=== PATIENT | female | born 1945 | race Caucasian/White ===

== ENCOUNTER → 2020-02-08 09:19 | Outpatient (REF) | payer MEDICARE, SELFPAY ==
--- NOTE | 2020-02-08 09:30 | CA_ITS ---
Transthoracic Echocardiogram Patient (Last, First, Middle): Nadia Chrisetnsen, Gender: Female Date of : 1945 Age: 74 Procedure Date: 02/08/2020 Procedure Type: Transthoracic Echocardiogram Location: OP Height: 157.48 cm Weight: 85.28 kg BSA: 1.86 m2 Heart Rate: bpm BP: 118 / 52 mmHg Rand Sewer: ADRIENNE Referring MD: Scotty Jorge MD Symptoms: Paroxysmal atrial fibrillation, CHF Study Quality: Fair ECG Rhythm: Sinus Conclusions: - The left ventricular systolic function is normal. The visually estimated ejection fraction is between 60-65%. - No obvious valvular pathology seen on this study. Findings Left Ventricle Normal left ventricular cavity size. There is normal left ventricular wall thickness. The left ventricular systolic function is normal. The visually estimated ejection fraction is between 60-65%. There is no evidence of regional wall motion abnormalities. E/E prime ratio is <8, consistent with normal filling pressures. Evidence suggests grade I (mild) diastolic dysfunction. Right Ventricle Normal right ventricular cavity size and systolic function. Atria The left atrium is normal in size. The right atrium is normal in size. Aortic Valve There is a normal trileaflet aortic valve. There is no aortic valve stenosis. Trace to mild aortic regurgitation. Mitral Valve The mitral valve appears normal. There is trace mitral valve regurgitation. There is no mitral valve stenosis. Pulmonic Valve The pulmonic valve was not well visualized. Tricuspid Valve Normal tricuspid valve structure. There is trace tricuspid valve regurgitation. The right ventricular systolic pressure is normal. Great Vessels The aortic annulus, sinuses of valsalva, and asc aorta are normal in size. Venous The inferior vena cava is normal in size and collapses greater than 50% with inspiration. Pericardium/Pleural There is no evidence of pericardial effusion. Prior Study Comparison No significant change compared to prior study dated: 03/11/2019. Recommendations, Care & Conclusions No obvious valvular pathology seen on this study. Measurements 2D Linear Measurements IVSd: 0.79 0.6-0.9/0.6-1.0 cm LVIDd: 4.83 3.9-5.3/4.2-5.9 cm LVIDd Index: 2.60 2.4-3.2/2.2-3.1 cm/m2 LVIDs: 3.58 2.0-3.6 cm LVPWd: 0.93 0.7-1.1 cm Ao Root: 2.90 2.1-3.5 cm LA Diam: 3.60 2.7-3.8/3.0-4.0 cm LAIDs Index: 1.94 1.5-2.3 cm/m2 LV Mass: 174.00 67-162/88-224 g LV Mass Index: 93.55 43-95/49-115 g/m2 LVOT Diam: 2.00 3.0+(-)1.3 cm 2D Systolic Function EF 2C: 60.90 >55% Mitral Valve MV Pk E: 0.50 MV PK A: 0.61 MV Decel Time: 243.00 E/A: 0.80 E'Lateral: 8.51 E'Medial: 4.25 E/E' Med: 11.60 E/E' Lat: 5.80 PHT: 71.00 MVA PHT: 3.10 Decel [place]: 2.04 Aortic Valve AoV Pk Nico: 1.10 AoV Pk Grad: 5.00 AI Pk Nico: 2.84 AI [place]: 1.04 LVOT LVOT Pk Nico: 1.06 LVOT Mn Nico: 0.66 LVOT VTI: 0.24 LVOT Pk Grad: 4.00 LVOT Mn Grad: 2.00 LVOT Diam: 2.00 LVOT Area: 3.14 Diastolic Function MV Pk E: 0.50 MV Pk A: 0.61 E/A: 0.80 E'Medial: 4.25 E/E' Med: 11.60 E' Laterial: 8.51 E/E' Lat: 5.80 Tricuspid Valve TR Pk Nico: 2.10 TR Pk Grad: 18.00 RA Press: 3.00 Great Vessels Aorta Ao Root-2D: 2.90 2.0-3.7 cm Ao Asc: 3.40 2.1-3.4 cm Updated in Other Vendor System with Status of Final Nicolas Martinez MD electronically signed on 02/11/2020 9:07:52 AM with status of Final
== END ==
LOC: HO.CARD 09:19
PROVIDERS: PCP Family Medicine; Visit Provider Internal Medicine Cardiovascular Disease
DX: I48.0 Paroxysmal atrial fibrillation (principal); I50.30 Unspecified diastolic (congestive) heart failure
CPT/HCPCS: 93306

== ENCOUNTER 2020-07-16 14:08 | Outpatient (REF) | payer MEDICARE, SELFPAY ==
[2020-07-16 15:20] LABS: Hematocrit 42.1 % (37-47); Mean Corpuscular HGB Conc 33.3 g/dl (31.0-35.0); Mean Corpuscular Volume 93.3 fL (80-98); Mean Platelet Volume 10.2 fL (9.4-12.3); Platelet Count 317 X10*3/uL (160-400); Red Blood Count 4.51 X10*6/uL (4.20-5.50); Red Cell Distribution Width 15.4 % (11.0-16.0); White Blood Count 8.8 X10*3/uL (4.8-10.8)
[2020-07-16 15:48] LABS: Anion Gap 12 (12-20); Blood Urea Nitrogen 17 mg/dL (9-16); Calcium 9.1 mg/dL (8.4-10.2); Carbon Dioxide 26 mmol/L (22-29); Chloride 105 mmol/L (96-108); Estimated Glomerular Filt Rate > 60; Glucose Random 86 mg/dL (60-115); Sodium 138 mmol/L (135-145)
== END 2020-07-16 14:09 | disposition home or self-care (01) ==
LOC: HO.LAB 14:08
PROVIDERS: PCP Family Medicine; Visit Provider Internal Medicine Cardiovascular Disease
DX: I48.0 Paroxysmal atrial fibrillation (principal); I13.0 Hypertensive heart and chronic kidney disease with heart failure and stage 1 through stage 4 chronic kidney disease, or unspecified chronic kidney disease; I50.30 Unspecified diastolic (congestive) heart failure; N18.9 Chronic kidney disease, unspecified; I73.9 Peripheral vascular disease, unspecified; I44.0 Atrioventricular block, first degree; J45.909 Unspecified asthma, uncomplicated; Z86.16 Personal history of COVID-19
CPT/HCPCS: 36415; 80048; 85027; 93005; 99212

== ENCOUNTER 2020-11-13 12:29 | Outpatient (REF) | payer MEDICARE, SELFPAY ==
--- NOTE | ~2020-11-13 | MM_ITS ---
EXAMINATION: MM SCREENING DIGITAL BREAST TOMOSYNTHESIS, RIGHT CLINICAL INFORMATION: History left mastectomy 2010. Due for yearly. COMPARISON: Mammography: 11/09/2019, 10/22/2018, 10/21/2017, 12/22/2016 TECHNIQUE: Digital breast tomosynthesis is performed in both the craniocaudal and mediolateral oblique views along with computer-aided detection (CAD). Synthesized 2D images are generated from the tomosynthesis. FINDINGS: The breasts are heterogeneously dense, which may obscure small masses (ACR BI-RADS breast composition Category c). Parenchymal pattern is similar to prior studies. There is no developing density or interval mass or architectural abnormality. Again, there are scattered round, rim, and vascular calcifications. The axilla and skin contours are unremarkable. No significant changes. MM/MM tomosynthesis screening RT IMPRESSION: No mammographic evidence of malignancy. ASSESSMENT: BI-RADS 2: Benign RECOMMENDATION: Routine annual mammography screening. This patient's information was entered into a reminder system with a target due date for their next mammogram.
== END 2020-11-13 12:30 | disposition home or self-care (01) ==
LOC: HO.MAMMO 12:29
PROVIDERS: Visit Provider Family Medicine
DX: Z12.31 Encounter for screening mammogram for malignant neoplasm of breast (principal)
CPT/HCPCS: 77063; 77067

== ENCOUNTER → 2020-12-31 08:26 | Outpatient (REF) | payer MEDICARE, SELFPAY ==
--- NOTE | ~2020-12-31 | XR_ITS ---
EXAMINATION: XR ANKLE, RIGHT CLINICAL INFORMATION: Pain. COMPARISON: Prior radiographs, most recently 12/10/2016. TECHNIQUE: AP, lateral, and mortise views of the right ankle. FINDINGS: Bony alignment and mineralization are normal. The ankle mortise is intact. No fracture, dislocation or right ankle joint effusion is seen. Boehler's angle is normal. There is a tiny posterior calcaneal spur. There is degenerative change of the dorsal midfoot. The soft tissue planes are unremarkable, without foreign body. XR/XR ankle RT min 3V IMPRESSION: 1. No fracture, dislocation or right ankle joint effusion is seen. 2. There is a tiny posterior calcaneal spur. EXAMINATION: XR ANKLE, LEFT CLINICAL INFORMATION: Pain. COMPARISON: None TECHNIQUE: AP, lateral, and mortise views of the left ankle. FINDINGS: Bony alignment and mineralization are normal. The ankle mortise is intact. No acute fracture, dislocation or right pleural effusion is seen. A chronic compression fracture is redemonstrated of the navicular. There are degenerative changes of the midfoot. Boehler's angle is normal. There is a very small posterior calcaneal spur. The soft tissue planes are unremarkable, without foreign body. IMPRESSION: 1. No fracture, dislocation or left ankle joint effusion is seen. 2. A chronic compression fracture is recent demonstrating of the left navicular bone. 3. There is a very small posterior calcaneal spur.
--- NOTE | ~2020-12-31 | XR_ITS ---
EXAMINATION: XR ANKLE, RIGHT CLINICAL INFORMATION: Pain. COMPARISON: Prior radiographs, most recently 12/10/2016. TECHNIQUE: AP, lateral, and mortise views of the right ankle. FINDINGS: Bony alignment and mineralization are normal. The ankle mortise is intact. No fracture, dislocation or right ankle joint effusion is seen. Boehler's angle is normal. There is a tiny posterior calcaneal spur. There is degenerative change of the dorsal midfoot. The soft tissue planes are unremarkable, without foreign body. XR/XR ankle LT min 3V IMPRESSION: 1. No fracture, dislocation or right ankle joint effusion is seen. 2. There is a tiny posterior calcaneal spur. EXAMINATION: XR ANKLE, LEFT CLINICAL INFORMATION: Pain. COMPARISON: None TECHNIQUE: AP, lateral, and mortise views of the left ankle. FINDINGS: Bony alignment and mineralization are normal. The ankle mortise is intact. No acute fracture, dislocation or right pleural effusion is seen. A chronic compression fracture is redemonstrated of the navicular. There are degenerative changes of the midfoot. Boehler's angle is normal. There is a very small posterior calcaneal spur. The soft tissue planes are unremarkable, without foreign body. IMPRESSION: 1. No fracture, dislocation or left ankle joint effusion is seen. 2. A chronic compression fracture is recent demonstrating of the left navicular bone. 3. There is a very small posterior calcaneal spur.
--- NOTE | ~2020-12-31 | XR_ITS ---
EXAMINATION: XR KNEE, RIGHT XR KNEE, LEFT CLINICAL INFORMATION: Pain COMPARISON: X-ray 11/07/2015. TECHNIQUE: Bilateral knees each 4 views. FINDINGS: Left Knee: Marginal osteophytes in the medial compartment. Medial and lateral compartment joint space is maintained. There is marginal osteophyte, lateral patellar tilt and narrowing of the lateral aspect of the patellofemoral joint on the skyline view. No visible acute fracture or dislocation. Small suprapatellar joint fluid. Right Knee: Marginal osteophytes in the three compartments. Mild lateral patellar subluxation and prominent joint space loss in the lateral articulation of the patellofemoral joint. Chronic-appearing ossification along the lateral aspect of the patella. No visible acute fracture or dislocation. Trace suprapatellar joint fluid. XR/XR knee LT 4V IMPRESSION: Left Knee: Osteoarthritis, more prominent in the patellofemoral compartment, interval worsening as compared to previous. No acute osseous abnormality. Right Knee: Osteoarthritis present, more prominent in the patellofemoral compartment. Interval progression from previous. No acute osseous abnormality.
--- NOTE | ~2020-12-31 | XR_ITS ---
EXAMINATION: XR KNEE, RIGHT XR KNEE, LEFT CLINICAL INFORMATION: Pain COMPARISON: X-ray 11/07/2015. TECHNIQUE: Bilateral knees each 4 views. FINDINGS: Left Knee: Marginal osteophytes in the medial compartment. Medial and lateral compartment joint space is maintained. There is marginal osteophyte, lateral patellar tilt and narrowing of the lateral aspect of the patellofemoral joint on the skyline view. No visible acute fracture or dislocation. Small suprapatellar joint fluid. Right Knee: Marginal osteophytes in the three compartments. Mild lateral patellar subluxation and prominent joint space loss in the lateral articulation of the patellofemoral joint. Chronic-appearing ossification along the lateral aspect of the patella. No visible acute fracture or dislocation. Trace suprapatellar joint fluid. XR/XR knee RT 4V IMPRESSION: Left Knee: Osteoarthritis, more prominent in the patellofemoral compartment, interval worsening as compared to previous. No acute osseous abnormality. Right Knee: Osteoarthritis present, more prominent in the patellofemoral compartment. Interval progression from previous. No acute osseous abnormality.
--- NOTE | 2020-12-31 08:30 | CA_ITS ---
Transthoracic Echocardiogram Patient (Last, First, Middle): Nadia Christensen, Gender: Female Date of : 1945 Age: 75 Procedure Date: 12/31/2020 Procedure Type: Transthoracic Echocardiogram Location: OP Height: 152.4 cm Weight: 83.01 kg BSA: 1.80 m2 Heart Rate: bpm BP: 114 / 60 mmHg Buffer Operator: Jean MD: Scotty Jorge MD Maintenance Manager: Scotty Jorge MD Symptoms: I50.30 - Unspecified diastolic (congestive) heart failure Study Quality: Fair ECG Rhythm: Sinus Conclusions: - 1. Normal LV systolic function with grade 1 diastolic dysfunction next 2. Mild aortic regurgitation 3. Normal RV systolic pressure 4. No pericardial effusion Findings Left Ventricle Normal left ventricular size, thickness, and systolic function. The visually estimated ejection fraction is between 55-60%. Spectral Doppler is indicative of an impaired relaxation filling pattern. E/E prime ratio is <8, consistent with normal filling pressures. Evidence suggests grade I (mild) diastolic dysfunction. Right Ventricle Normal right ventricular cavity size and systolic function. Atria The left atrium is normal in size. There is no evidence of interatrial shunt. The right atrium is normal in size. Aortic Valve The aortic valve was not well visualized. There is mild calcification of the aortic valve. There is no aortic valve stenosis. There is mild aortic valve regurgitation. Mitral Valve There is mild anterior and posterior mitral leaflet thickening. There is trace mitral valve regurgitation. There is no mitral valve stenosis. Pulmonic Valve The pulmonic valve was not well visualized. Tricuspid Valve Likely normal tricuspid valve structure and function. There is trace tricuspid valve regurgitation. The right ventricular systolic pressure is normal. The right ventricular systolic pressure is 24 mmHg. Normal right atrial pressure. There is no evidence of pulmonary hypertension. Great Vessels All visible segments of the aorta are normal in size. The pulmonary artery was not well visualized. Venous The inferior vena cava is normal in size and collapses greater than 50% with inspiration. Pericardium/Pleural There is no evidence of pericardial effusion. Prior Study Comparison No significant change compared to prior study dated: 02/08/2020. Measurements 2D Linear Measurements RVIDd: 3.43 RVIDd Index: 1.91 IVSd: 1.16 0.6-0.9/0.6-1.0 cm LVIDd: 5.57 3.9-5.3/4.2-5.9 cm LVIDd Index: 3.09 2.4-3.2/2.2-3.1 cm/m2 LVIDs: 3.47 2.0-3.6 cm LVPWd: 1.00 0.7-1.1 cm Ao Root: 3.30 2.1-3.5 cm LA Diam: 4.00 2.7-3.8/3.0-4.0 cm LAIDs Index: 2.22 1.5-2.3 cm/m2 LV Mass: 300.64 67-162/88-224 g LV Mass Index: 167.02 43-95/49-115 g/m2 LVOT Diam: 2.20 3.0+(-)1.3 cm 2D Systolic Function EF 4C: 49.40 >55% EF 2C: 49.60 >55% Mitral Valve MV Pk E: 0.49 MV PK A: 0.57 MV Decel Time: 249.00 E/A: 0.90 E'Lateral: 8.59 E'Medial: 4.57 E/E' Med: 10.80 E/E' Lat: 5.70 Aortic Valve AoV Pk Nico: 1.31 AoV Mn Nico: 0.92 AoV VTI: 0.29 AoV Pk Grad: 7.00 Aov Mn Grad: 4.00 YAAKOV Cont.VTI: 3.36 AI Pk Nico: 3.11 AI [place]: 1.18 LVOT LVOT Pk Nico: 1.12 LVOT Mn Nico: 0.86 LVOT VTI: 0.25 LVOT Pk Grad: 5.00 LVOT Mn Grad: 3.00 LVOT Diam: 2.20 LVOT Area: 3.80 Diastolic Function MV Pk E: 0.49 MV Pk A: 0.57 E/A: 0.90 E'Medial: 4.57 E/E' Med: 10.80 E' Laterial: 8.59 E/E' Lat: 5.70 Right Ventricle TAPSE (mm): 24.00 TVS' Nico: 9.80 Tricuspid Valve TR Pk [place]: 2.29 TR Pk Grad: 21.00 RA Press: 3.00 RVSP: 24.00 Great Vessels Aorta Ao Root-2D: 3.30 2.0-3.7 cm Ao Asc: 3.50 2.1-3.4 cm Ao Arch: 2.90 Updated in Other Vendor System with Status of Final Scotty Jorge MD electronically signed on 12/31/2020 12:26:14 PM with status of Final
== END ==
LOC: HO.CARD 08:26
PROVIDERS: Absent Provider Family Medicine; PCP Family Medicine; Visit Provider Internal Medicine Cardiovascular Disease
DX: I50.30 Unspecified diastolic (congestive) heart failure (principal); M25.561 Pain in right knee; M25.562 Pain in left knee; M25.571 Pain in right ankle and joints of right foot; M25.572 Pain in left ankle and joints of left foot
CPT/HCPCS: 73564; 73610; 93306

== ENCOUNTER → 2021-01-04 08:04 | Outpatient (BNVA) | payer MEDICARE, SELFPAY | PROVIDERS: PCP Family Medicine; Visit Provider Physician Assistant | DX: M17.10 Unilateral primary osteoarthritis, unspecified knee (principal) | CPT/HCPCS: 99202 ==

== ENCOUNTER → 2021-01-08 12:57 | Outpatient (BNVA) | payer MEDICARE, SELFPAY | PROVIDERS: PCP Family Medicine; Referring Provider Family Medicine; Visit Provider Internal Medicine Cardiovascular Disease | DX: I48.0 Paroxysmal atrial fibrillation (principal); I50.30 Unspecified diastolic (congestive) heart failure | CPT/HCPCS: 93005; 99212 ==

== ENCOUNTER → 2021-01-15 11:14 | Outpatient (BNVA) | payer MEDICARE, SELFPAY | PROVIDERS: PCP Family Medicine; Visit Provider Nurse Practitioner Family | DX: M15.9 Polyosteoarthritis, unspecified (principal); M79.671 Pain in right foot; M79.672 Pain in left foot | CPT/HCPCS: 99212 ==

== ENCOUNTER 2021-07-17 09:41 | Outpatient (REF) | payer MEDICARE, SELFPAY ==
[2021-07-17 11:44] LABS: Hematocrit 41.1 % (37.0-47.0); Hemoglobin 13.6 g/dl (12.0-16.0); Mean Corpuscular HGB Conc 33.1 g/dl (31.0-35.0); Mean Corpuscular Hemoglobin 31.2 pg (27.0-33.0); Mean Corpuscular Volume 94.3 fL (80.0-98.0); Mean Platelet Volume 10.6 fL (9.4-12.3); Platelet Count 306 X10*3/uL (160-400); Red Blood Count 4.36 X10*6/uL (4.20-5.50); Red Cell Distribution Width 14.6 % (11.0-16.0)
[2021-07-17 12:31] LABS: Anion Gap 12 (12-20); Blood Urea Nitrogen 17 mg/dL (9-16); Calcium 9.8 mg/dL (8.4-10.2); Carbon Dioxide 27 mmol/L (22-29); Chloride 104 mmol/L (96-108); Estimated Glomerular Filt Rate > 60; Glucose Random 73 mg/dL (60-115); Potassium 4.7 mmol/L (3.3-5.1); Sodium 138 mmol/L (135-145)
== END 2021-07-17 09:42 | disposition home or self-care (01) ==
LOC: HO.LAB 09:41
PROVIDERS: PCP Family Medicine; Referring Provider Family Medicine; Visit Provider Internal Medicine Cardiovascular Disease
DX: I48.0 Paroxysmal atrial fibrillation (principal); I50.30 Unspecified diastolic (congestive) heart failure
CPT/HCPCS: 36415; 80048; 85027; 93005; 99212

== ENCOUNTER → 2021-09-17 10:26 | Outpatient (BNVA) | payer OTHER, SELFPAY | PROVIDERS: PCP Family Medicine; Visit Provider Nurse Practitioner Family | DX: M79.671 Pain in right foot (principal); M79.672 Pain in left foot; M25.561 Pain in right knee; M25.562 Pain in left knee; M54.50 Low back pain, unspecified | CPT/HCPCS: 99212 ==

== ENCOUNTER 2021-09-18 10:45 | Outpatient (REF) | payer OTHER, SELFPAY ==
--- NOTE | ~2021-09-18 | MM_ITS ---
EXAMINATION: BONE DENSITOMETRY CLINICAL INDICATION: Osteopenia. COMPARISON: Previous BD dated 08/18/2017 and baseline BD dated 01/11/2007. TECHNIQUE: Using a [employer] DXA System (software version: 13.1) manufactured by [employer], dual-energy x-ray absorptiometry was performed of the lumbar spine and left hip. The images are of good technical quality. Summary results are attached. FINDINGS: AP SPINE L1-L3 (excluding L4): The data of L1-L4 has been changed to exclude the L4 vertebral body, because degenerative changes at this level may cause overestimation of lumbar spine density. Current: BMD 1.019 g/cm2, Z-score 2.0, T-score -1.3, osteopenia, 8.6% increase from previous, 0.4% increase from baseline (<5% change is not significant). Prior: BMD 0.938 g/cm2. Baseline: BMD 1.015 g/cm2. LEFT FEMUR, NECK: Current: BMD 0.842 g/cm2, Z-score 0.3, T-score -1.4, osteopenia. Prior: BMD 0.901 g/cm2. Baseline: BMD 0.915 g/cm2. LEFT FEMUR, TOTAL: Current: BMD 0.932 g/cm2, Z-score 0.9, T-score -0.6, normal, 5.6% decrease from previous, 10.7% decrease from baseline (<5% change is not significant). Prior: BMD 0.987 g/cm2. Baseline: BMD 1.044 g/cm2. IDENTIFIED RISK FACTORS: Early menopause, hysterectomy, secondary osteoporosis. HISTORY OF FRACTURE: None listed. MEDICATIONS: None listed. MM/XR DEXA axial skeleton IMPRESSION: 1. DIAGNOSIS: Osteopenia based on the lowest T-score value of -1.4 in the femoral neck applying World Health Organization criteria. 2. 10-YEAR FRACTURE RISK PREDICTION, FRAX: Major osteoporotic fracture (clinical spine, forearm, hip or shoulder) 7.1%. Hip fracture 1.5%. 3. Treatment Recommendations: NOF guidelines recommend consideration for treatment in postmenopausal women and men age 50 and older presenting with the following: -A hip or vertebral (clinical or morphometric) fracture. -T-score less than or equal to -2.5 at the femoral neck or spine after appropriate evaluation to exclude secondary causes. -Low bone mass at the hip or spine and a 10-year fracture probability by FRAX of greater than or equal to 3% for hip fracture or greater than or equal to 20% for major osteoporotic fracture based on the [place] adapted WHO algorithm. 4. Other Recommendations: All treatment decisions require clinical judgment and consideration of individual patient factors, including patient preferences, comorbidities, previous drug use, risk factors not captured in the FRAX model (e.g. frailty, falls, vitamin D deficiency, increased bone turnover, interval significant decline in bone density) and possible under or overestimation of fracture risk by FRAX. Additional medical evaluation for secondary cause of low bone mineral density may be appropriate. FUTURE SCAN RECOMMENDATION: People with diagnosed cases of osteoporosis or at high risk for fracture should have regular bone mineral density tests. For patients eligible for Medicare, routine testing is allowed once every 2 years. The testing frequency can be increased to one year for patients who have rapidly progressing disease, those who are receiving or discontinuing medical therapy to restore bone mass, or have additional risk factors.
== END 2021-09-18 10:46 | disposition home or self-care (01) ==
LOC: HO.MAMMO 10:45
PROVIDERS: PCP Family Medicine; Visit Provider Internal Medicine Medical Oncology
DX: Z13.820 Encounter for screening for osteoporosis (principal); D05.12 Intraductal carcinoma in situ of left breast; Z78.0 Asymptomatic menopausal state; M85.80 Other specified disorders of bone density and structure, unspecified site
CPT/HCPCS: 77080

== ENCOUNTER 2021-11-18 10:15 | Outpatient (REF) | payer OTHER, SELFPAY ==
--- NOTE | ~2021-11-18 | MM_ITS ---
EXAMINATION: MM SCREENING DIGITAL BREAST TOMOSYNTHESIS, RIGHT CLINICAL INFORMATION: Left mastectomy, 2010. Due for yearly. COMPARISON: Mammography: 11/13/2020, 11/09/2019, 10/22/2018 TECHNIQUE: Digital breast tomosynthesis is performed in both the craniocaudal and mediolateral oblique views along with computer-aided detection (CAD). Synthesized 2D images are generated from the tomosynthesis. Additional right CC view is provided. FINDINGS: The breasts are heterogeneously dense, which may obscure small masses (ACR BI-RADS breast composition Category c). There are no significant masses, abnormal calcifications, or other abnormalities. Parenchymal pattern is similar to prior exams. There are scattered vascular and round calcifications. The axilla and skin contours are unremarkable. No significant changes from prior studies. MM/MM tomosynthesis screening RT IMPRESSION: No mammographic evidence of malignancy. ASSESSMENT: BI-RADS 2: Benign RECOMMENDATION: Routine annual mammography screening. This patient's information was entered into a reminder system with a target due date for their next mammogram.
== END 2021-11-18 10:16 | disposition home or self-care (01) ==
LOC: HO.MAMMO 10:15
PROVIDERS: Visit Provider Internal Medicine Medical Oncology
DX: Z12.31 Encounter for screening mammogram for malignant neoplasm of breast (principal); Z90.12 Acquired absence of left breast and nipple
CPT/HCPCS: 77063; 77067

== ENCOUNTER → 2022-01-10 14:48 | Outpatient (BNVA) | payer OTHER, SELFPAY | PROVIDERS: PCP Family Medicine; Referring Provider Family Medicine; Visit Provider Nurse Practitioner | DX: Z01.818 Encounter for other preprocedural examination (principal); K59.04 Chronic idiopathic constipation; I48.0 Paroxysmal atrial fibrillation; J44.9 Chronic obstructive pulmonary disease, unspecified | CPT/HCPCS: 99202; 99212 ==

== ENCOUNTER → 2022-01-21 10:08 | Outpatient (BNVA) | payer OTHER, SELFPAY | PROVIDERS: PCP Family Medicine; Referring Provider Family Medicine; Visit Provider Internal Medicine Cardiovascular Disease | DX: I48.0 Paroxysmal atrial fibrillation (principal); I50.30 Unspecified diastolic (congestive) heart failure | CPT/HCPCS: 93005; 99212 ==

== ENCOUNTER 2022-01-31 08:39 | Outpatient (REF) | payer OTHER, SELFPAY ==
[2022-01-31 08:51] LABS: MANUAL DIFF FLAG NO
[2022-01-31 09:51] LABS: Basophils Absolute Auto 0.1 X10*3/uL (0.0-0.2); Eosinophils Absolute Auto 0.2 X10*3/uL (0.0-0.4); Hemoglobin 13.7 g/dl (12.0-16.0); Imm Gran Abs Auto 0.03 X10*3/uL (0.00-0.03); Imm Gran Pct Auto 0.4 % (0.0-0.4); Lymphocytes Absolute Auto 2.5 X10*3/uL (1.2-4.9); Lymphocytes Percent Auto 31.1 % (20-40); Mean Corpuscular HGB Conc 32.6 g/dl (31.0-35.0); Mean Corpuscular Hemoglobin 30.9 pg (27.0-33.0); Mean Corpuscular Volume 94.6 fL (80.0-98.0); Mean Platelet Volume 10.5 fL (9.4-12.3); Monocytes Absolute Auto 0.9 X10*3/uL (0.1-1.2); Monocytes Percent Auto 10.7 % (2-11); Neutrophils Absolute Auto 4.4 x10*3/uL (2.0-8.3); Neutrophils Percent Auto 53.8 % (45-73); Platelet Count 298 X10*3/uL (160-400); Red Blood Count 4.44 X10*6/uL (4.20-5.50); Red Cell Distribution Width 14.5 % (11.0-16.0); White Blood Count 8.1 X10*3/uL (4.8-10.8)
[2022-01-31 10:49] LABS: Alanine Aminotransferase 14 U/L (0-31); Albumin Level 4.1 g/dL (3.5-5.0); Alkaline Phosphatase 123 U/L (39-117); Anion Gap 14 (12-20); Aspartate Amino Transferase 14 U/L (5-31); Bilirubin Total < 0.2 mg/dL (0.0-1.0); Blood Urea Nitrogen 13 mg/dL (9-16); Calcium 9.5 mg/dL (8.4-10.2); Carbon Dioxide 26 mmol/L (22-29); Chloride 105 mmol/L (96-108); Estimated Glomerular Filt Rate > 60; Glucose Random 77 mg/dL (60-115); Potassium 4.9 mmol/L (3.3-5.1); Sodium 140 mmol/L (135-145); Total Protein 7.1 g/dL (6.5-8.0)
[2022-01-31 10:56] LABS: Vitamin D 25-OH Total 22.8 ng/mL (>30)
== END 2022-01-31 08:40 | disposition home or self-care (01) ==
LOC: HO.LAB 08:39
PROVIDERS: Internal Medicine Medical Oncology; PCP Family Medicine; Visit Provider Internal Medicine Cardiovascular Disease
DX: D05.12 Intraductal carcinoma in situ of left breast (principal)
CPT/HCPCS: 36415; 80053; 82306; 85025

== ENCOUNTER → 2022-02-05 09:05 | Outpatient (BNVA) | payer OTHER, SELFPAY | PROVIDERS: PCP Family Medicine; Visit Provider Nurse Practitioner | DX: K59.04 Chronic idiopathic constipation (principal); N81.4 Uterovaginal prolapse, unspecified | CPT/HCPCS: 99212 ==

== ENCOUNTER 2022-02-07 15:50 | Outpatient (REF) | payer OTHER, SELFPAY ==
[2022-02-07 16:36] LABS: COVID-19 Test Negative (Negative); IDNOW Serial# 16C4AD1C
== END 2022-02-07 15:51 | disposition home or self-care (01) ==
LOC: HO.LAB 15:50
PROVIDERS: Visit Provider Internal Medicine
DX: Z20.822 Contact with and (suspected) exposure to COVID-19 (principal)
CPT/HCPCS: 87635; C9803

== ENCOUNTER 2022-06-02 08:23 | Day surgery (SDC) | payer OTHER, SELFPAY ==
--- NOTE | 2022-05-30 11:58 | P.CONAN_ITS ---
Documented by User: Sarahi Reece NP 06/30/22 10:30 HPI - Anesthesia Eval Consult details Narrative: 77yo F for Colonoscopy Eliquis for PAF PMFSH Active Problems Active Problems: All Active Problems (Updated 05/26/22 @ 15:51 by Rizwana Gee, OBI) Ductal carcinoma in situ (DCIS) of left breast (Acute) Patellofemoral arthritis (Acute) Osteoarthritis of multiple joints (Acute) Pain in both feet (Acute) Depression with anxiety (Acute) COPD (chronic obstructive pulmonary disease) (Acute) Osteoporosis (Acute) Tubular adenoma of colon (Acute) Nummular eczema (Acute) Vitiligo (Acute) Cystocele with prolapse (Acute) Urinary, incontinence, stress female (Acute) Lumbar degenerative disc disease (Acute) Lumbar radiculopathy (Acute) Chronic idiopathic constipation (Acute) Pre-op examination (Acute) (HFpEF) heart failure with preserved ejection fraction (Acute) Paroxysmal atrial fibrillation (Acute) Past Medical History Medical History (Updated 06/27/22 @ 14:01 by SUSAN Witt) (HFpEF) heart failure with preserved ejection fraction Anxiety Atrial fibrillation Bronchial asthma CKD (chronic kidney disease) H. pylori infection Hypertension Insomnia Irritable bowel syndrome with both constipation and diarrhea On anticoagulant therapy On beta pascale at home Osteoarthritis Paroxysmal atrial fibrillation Peripheral vascular disease Vertigo Family History Family History Sister Breast cancer in female Family/Other Cancer of breast Surgical History Surgical History H/O cardiac catheterization H/O cataract removal with insertion of prosthetic lens H/O colonoscopy H/O left mastectomy H/O vaginal hysterectomy History of bladder suspension procedure History of cataract surgery S/P cholecystectomy Social History Social History (Updated 02/21/22 @ 09:15 by Alana Starkey CMA) Household Members: Spouse and Children Housing: Apartment Are you a primary plant care worker to a significant other at home: No Do you presently have visiting nurse or other home services: Yes Alcohol intake: never Patient Tobacco Use Status: Never used Tobacco service: No Current occupational status: retired and disabled Current occupation: rt hand Meds Allergies Allergy/AdvReac Type Severity Reaction Status Date / Time bumetanide [BUMETANIDE] Allergy Severe ANAPHYLAXIS Verified 06/27/22 13:23 acetaminophen Allergy Unknown UNKNOWN Verified 06/27/22 13:23 [From Tylenol-Codeine #3] codeine [CODEINE] Allergy Unknown HIVES Verified 06/27/22 13:23 dronedarone [From MULTAQ] Allergy Unknown NAUSEA & Verified 06/27/22 13:23 VOMITING furosemide Allergy Unknown hives Verified 06/27/22 13:23 cyclobenzaprine AdvReac Mild TACHYCARDIA Verified 06/27/22 13:23 [From Flexeril] diphenhydramine AdvReac Mild TACHYCARDIA Verified 06/27/22 13:23 [From Benadryl] Home Medications Medication Instructions Recorded Confirmed Last Taken Type albuterol sulfate 90 mcg/actuation 2 puff inhalation Q4-6H PRN 02/07/20 05/26/22 05/28/22 History aerosol inhaler Shortness Of Breath Or Wheezing cholecalciferol (vitamin D3) 50 50 mcg PO DAILY 02/07/20 06/02/22 05/28/22 History mcg (2,000 unit) tablet (Vitamin D3) cyanocobalamin (vitamin B-12) 1,000 mcg IM QMONTH 02/07/20 05/26/22 05/13/22 History 1,000 mcg/mL injection solution montelukast 10 mg tablet 10 mg PO BEDTIME 02/07/20 05/26/22 05/28/22 History fluticasone propionate 220 0 mcg inhalation BID 01/10/22 06/02/22 05/28/22 History mcg/actuation HFA aerosol inhaler (Flovent HFA) omeprazole 40 mg capsule,delayed 1 cap DAILY 02/21/22 05/26/22 05/28/22 History release flecainide 100 mg tablet 100 mg PO Q12H 06/27/22 Unknown History melatonin 1 mg tablet mg PO PRN 06/27/22 Unknown History Exam Exam Date and Time: May 30, 2022 1158 Pertinent Lab Results Pertinent Lab Results: Laboratory Tests 02/21/22 02/21/22 09:35 09:35 WBC 8.6 Hgb 13.4 Hct 39.8 Plt Count 308 Sodium 140 Potassium 4.8 Chloride 105 Carbon Dioxide 28 BUN 20 H D Creatinine 0.72 Narrative Narrative: EKG 01/2022 ?normal sinus rhythm with incomplete left bundle-branch block, unchanged from before with normal QT interval ECHO Conclusions: - 1. Normal LV systolic function with grade 1 diastolic? dysfunction next 2. Mild aortic regurgitation? 3. Normal RV systolic pressure ? 4. No pericardial effusion ? ? Assessment and Plan Assessment Anesthesia Assessment: Chart Reviewed Documented by User: Tatyana Liz MD 07/01/22 07:25 [facility] Past Medical History Medical History (Updated 06/27/22 @ 14:01 by SUSAN Witt) (HFpEF) heart failure with preserved ejection fraction Anxiety Atrial fibrillation Bronchial asthma CKD (chronic kidney disease) H. pylori infection Hypertension Insomnia Irritable bowel syndrome with both constipation and diarrhea On anticoagulant therapy On beta pascale at home Osteoarthritis Paroxysmal atrial fibrillation Peripheral vascular disease Vertigo Family History Family History Sister Breast cancer in female Family/Other Cancer of breast Family history of problems with anesthesia: No Surgical History Surgical History H/O cardiac catheterization H/O cataract removal with insertion of prosthetic lens H/O colonoscopy H/O left mastectomy H/O vaginal hysterectomy History of bladder suspension procedure History of cataract surgery S/P cholecystectomy History of Problems with Anesthesia: No Social History Social History (Updated 02/21/22 @ 09:15 by Alana Starkey CMA) Household Members: Spouse and Children Housing: Apartment Are you a primary plant care worker to a significant other at home: No Do you presently have visiting nurse or other home services: Yes Alcohol intake: never Patient Tobacco Use Status: Never used Tobacco service: No Current occupational status: retired and disabled Current occupation: rt hand Meds Allergies Allergy/AdvReac Type Severity Reaction Status Date / Time bumetanide [BUMETANIDE] Allergy Severe ANAPHYLAXIS Verified 06/27/22 13:23 acetaminophen Allergy Unknown UNKNOWN Verified 06/27/22 13:23 [From Tylenol-Codeine #3] codeine [CODEINE] Allergy Unknown HIVES Verified 06/27/22 13:23 dronedarone [From MULTAQ] Allergy Unknown NAUSEA & Verified 06/27/22 13:23 VOMITING furosemide Allergy Unknown hives Verified 06/27/22 13:23 cyclobenzaprine AdvReac Mild TACHYCARDIA Verified 06/27/22 13:23 [From Flexeril] diphenhydramine AdvReac Mild TACHYCARDIA Verified 06/27/22 13:23 [From Benadryl] Home Medications Medication Instructions Recorded Confirmed Last Taken Type albuterol sulfate 90 mcg/actuation 2 puff inhalation Q4-6H PRN 02/07/20 05/26/22 05/28/22 History aerosol inhaler Shortness Of Breath Or Wheezing cholecalciferol (vitamin D3) 50 50 mcg PO DAILY 02/07/20 06/02/22 05/28/22 History mcg (2,000 unit) tablet (Vitamin D3) cyanocobalamin (vitamin B-12) 1,000 mcg IM QMONTH 02/07/20 05/26/22 05/13/22 History 1,000 mcg/mL injection solution montelukast 10 mg tablet 10 mg PO BEDTIME 02/07/20 05/26/22 05/28/22 History fluticasone propionate 220 0 mcg inhalation BID 01/10/22 06/02/22 05/28/22 History mcg/actuation HFA aerosol inhaler (Flovent HFA) omeprazole 40 mg capsule,delayed 1 cap DAILY 02/21/22 05/26/22 05/28/22 History release flecainide 100 mg tablet 100 mg PO Q12H 06/27/22 Unknown History melatonin 1 mg tablet mg PO PRN 06/27/22 Unknown History Exam Airway Heart: rrr Lungs: cta Assessment and Plan Assessment Anesthesia Assessment: Anesthesia Plan Discussed Final Anesthetic Review Family History of Problems with Anesthesia: No History of Problems with Anesthesia: No NPO: Yes ASA Class: III Final Preanesthetic Review: No Changes in Pt Med Stat, Meds/Allgs Chart Reviewed, Consent Obtained/Reviewed and Anes Risks/Benef Reviewed Patient Risk: Low Procedure Risk: Low Anesthetic Plan Anesthetic Plan: GA Disposition: Standard PACU
[2022-06-02 06:43] VITALS: BMI 33.6
[2022-06-02 08:53] VITALS: BP 144/61; PULSE 56; RESP 18; TEMP 36.6; O2SAT 97
[2022-06-02] MEDS: Lactated Ringers 1,000 ML 50 ML IVCONT (09:21)
--- NOTE | 2022-06-02 09:45 | MHC.SHP ---
Pre-Procedural Eval Section A Date of Service: 06/02/22 The patient is an INPATIENT: No The History & Physical has been completed within 30 days and I have reviewed it.: No Section B Chief Complaint: screening, Chronic idiopathic constipation Details of Present Illness: Colon cancer screening, chronic constipation, rectal pain Relevant Family History (Specify if Yes): No Relevant Social History: None Present Medications: see Short Stay Collaborative assessment Medical History: Significant History (Partially evaluated due to suboptimal prep with undigested vegetable matter which could not be suctioned) History of Previous Operations: Relevant previous surgery/procedure and date(s) (H/O cardiac catheterization H/O cataract removal with insertion of prosthetic lens H/O colonoscopy H/O left mastectomy H/O vaginal hysterectomy History of bladder suspension procedure History of cataract surgery S/P cholecystectomy) Allergies: Allergies Allergy/AdvReac Type Severity Reaction Status Date / Time bumetanide [BUMETANIDE] Allergy Severe ANAPHYLAXIS Verified 05/26/22 15:40 acetaminophen Allergy Unknown UNKNOWN Verified 05/26/22 15:40 [From Tylenol-Codeine #3] codeine [CODEINE] Allergy Unknown HIVES Verified 05/26/22 15:40 dronedarone [From MULTAQ] Allergy Unknown NAUSEA & Verified 05/26/22 15:40 VOMITING furosemide Allergy Unknown hives Verified 05/26/22 15:40 cyclobenzaprine AdvReac Mild TACHYCARDIA Verified 05/26/22 15:40 [From Flexeril] diphenhydramine AdvReac Mild TACHYCARDIA Verified 05/26/22 15:40 [From Benadryl] Review of Systems Sugical H&P ROS: Negative: Constitution, Cardiovascular, Respiratory and Gastrointestinal Exam Surgical H&P Exam: Normal: Heart, Normal: Lungs, Normal: Extremities and Normal: Abdomen Plan Diagnosis/Plan: Unchanged I have reviewed the history and physical and performed a pertinent physical examination on my patient. No changes have occurred unless specified. Time Spent With Patient Time: Total time managing care of this patient today ____ minutes.
--- NOTE | 2022-06-02 11:22 | PM.OP ---
Brief Operative Note Date of Service: 06/02/22 Pre-op diagnosis: Colon cancer screening, chronic constipation Post-op diagnosis: other (Colon polyps, diverticulosis, hemorrhoids) Procedure: COLONOSCOPY TO CECUM WITH BIOPSIES AND SNARE POLYPECTOMY Surgeon: Abril Waters MD Anesthesia: MAC Was an Manager Operations [employer] used for this Procedure?: Yes Manager Operations [employer] Procurement: Zeina Ventura Estimated blood loss (mL): 0 Pathology: other (A. transverse colon polyps (2) B. sigmoid colon polyps (2)) Condition: stable Disposition: PACU
--- NOTE | 2022-06-02 11:23 | W.PM.OPN ---
Operative Note Operative Note Date of Service: 06/02/22 Narrative: Pre-op diagnosis: Colon cancer screening, chronic constipation Post-op diagnosis:?other (Colon polyps, diverticulosis, hemorrhoids) Surgeon: Abril Wtaers MD Anesthesia:?MAC COLONOSCOPY TILL CECUM WITH BIOPSIES AND SNARE POLYPECTOMY Consent: Indications for the procedure and potential complications of bleeding, perforation, reaction to medications and missed diagnosis were discussed with the patient and informed consent was obtained. Instrument: Olympus PCF H 190 L variable stiffness pediatric colonoscope Monitoring: Vital signs and clinical assessment, intermittent blood pressure monitoring, continuous EKG monitoring, Pulse oximetry and Carbon Dioxide monitoring were done throughout the procedure. Colon withdrawl time was 23 minutes. Procedure: The patient was placed in the left lateral decubitis position and pre-procedure medications were administered. After a digital rectal examination of the ano-rectum, the video colonoscope was inserted into the rectum and advanced through the colon to the cecum. The colonoscope was slowly withdrawn in a retrograde panoramic fashion and the colon mucosa was carefully examined including a retroflexed view of the rectum. Findings and interventions are described below. Procedure Difficulty: Without difficulty Findings: Terminal Ileum: Not evaluated Cecum: Normal Ascending Colon: Normal Transverse Colon: A 7-8 mm sessile polyp - removed with a cold snare. A 4-5 mm sessile polyp - removed with a cold biopsy Descending Colon: Moderate diverticulosis Sigmoid Colon: A 2-3 mm sessile polyp removed with a cold biopsy. A 12-15 mm sessile polyp removed with a hot snare. Moderate diverticulosis Rectum: Normal Ano-rectum: Moderate internal hemorrhoids Colon preparation: Excellent Impression and Post Procedure Diagnosis: Colonoscopy Findings: Four small to medium sized polyps removed Moderate diverticulosis seen in the left colon Moderate hemorrhoids on retroflexed exam. Plan: Await pathology results Patient has an appointment on 06/17/22 in the [facility] with Rebekah Mari NP. Repeat Colonoscopy interval based on path results - in 3 years if polyps are adenomatous and 10 years if polyps are hyperplastic. Above findings were reviewed with the patient and colon polyps and diverticulosis handouts were given in the discharge area
[2022-06-02 12:08] VITALS: BP 156/54; PULSE 57; RESP 16; TEMP 36.4; O2SAT 100
[2022-06-02 12:23] VITALS: BP 161/65; PULSE 51; RESP 16; TEMP 36.3; O2SAT 97
[2022-06-02 12:38] VITALS: BP 168/68; PULSE 53; RESP 16; O2SAT 98
== END 2022-06-02 13:38 | disposition home or self-care (01) ==
PROVIDERS: PCP Family Medicine; Visit Provider Internal Medicine Gastroenterology
PROC: 0DJD8ZZ Inspection of Lower Intestinal Tract, Via Natural or Artificial Opening Endoscopic (ICD-10-PCS; CPT 45378; principal; 2022-06-02 10:20)
DX: Z12.11 Encounter for screening for malignant neoplasm of colon (principal); K57.30 Diverticulosis of large intestine without perforation or abscess without bleeding; K63.5 Polyp of colon
CPT/HCPCS: 45380; 45385; 88305

== ENCOUNTER → 2022-06-27 13:15 | Outpatient (BNVA) | payer OTHER, SELFPAY | PROVIDERS: PCP Family Medicine; Visit Provider Nurse Practitioner | DX: D12.3 Benign neoplasm of transverse colon (principal); D12.5 Benign neoplasm of sigmoid colon; K57.30 Diverticulosis of large intestine without perforation or abscess without bleeding; K64.8 Other hemorrhoids; K59.04 Chronic idiopathic constipation; L30.0 Nummular dermatitis; Z98.890 Other specified postprocedural states | CPT/HCPCS: 99212 ==

== ENCOUNTER → 2022-07-28 09:00 | Outpatient (BNVA) | payer OTHER, SELFPAY | PROVIDERS: PCP Family Medicine; Referring Provider Family Medicine; Visit Provider Internal Medicine Cardiovascular Disease | DX: I50.30 Unspecified diastolic (congestive) heart failure (principal); I48.0 Paroxysmal atrial fibrillation | CPT/HCPCS: 93005; 99212 ==

== ENCOUNTER 2022-11-21 10:51 | Outpatient (REF) | payer OTHER, SELFPAY ==
--- NOTE | ~2022-11-21 | MM_ITS ---
EXAMINATION: MM SCREENING DIGITAL BREAST TOMOSYNTHESIS, RIGHT CLINICAL INFORMATION: Screening. Asymptomatic. Patient is status post left mastectomy. COMPARISON: Mammography: This study is compared with prior exams dating back to TECHNIQUE: Digital breast tomosynthesis is performed in both the craniocaudal and mediolateral oblique views along with computer-aided detection (CAD). Synthesized 2D images are generated from the tomosynthesis. FINDINGS: The breasts are heterogeneously dense, which may obscure small masses (ACR BI-RADS breast composition Category c). There are no significant masses, abnormal calcifications, or other abnormalities. There are scattered benign calcifications. MM/MM tomosynthesis screening RT IMPRESSION: No mammographic evidence of malignancy. ASSESSMENT: BI-RADS BI-RADS 2 - Benign Findings RECOMMENDATION: Routine annual mammography screening. 1 year F/U This examination should not preclude the clinical evaluation of a suspicious palpable abnormality. This patient's information was entered into a reminder system with a target due date for their next mammogram.
== END 2022-11-21 10:52 | disposition home or self-care (01) ==
LOC: HO.MAMMO 10:51
PROVIDERS: PCP Family Medicine; Visit Provider Family Medicine
DX: Z12.31 Encounter for screening mammogram for malignant neoplasm of breast (principal)
CPT/HCPCS: 77063; 77067

== ENCOUNTER → 2022-11-21 11:00 | Outpatient (BNV) | payer OTHER, SELFPAY | PROVIDERS: PCP Family Medicine; Visit Provider Radiology Diagnostic Radiology | DX: Z12.31 Encounter for screening mammogram for malignant neoplasm of breast (principal) | CPT/HCPCS: 77063; 77067 ==

== ENCOUNTER 2022-11-28 09:11 | Outpatient (REF) | payer OTHER, SELFPAY ==
[2022-11-28 11:16] LABS: MANUAL DIFF FLAG NO
[2022-11-28 11:31] LABS: Basophils Absolute Auto 0.1 X10*3/uL (0.0-0.2); Basophils Percent Auto 0.7 % (0-2); Eosinophils Absolute Auto 0.2 X10*3/uL (0.0-0.4); Eosinophils Percent Auto 1.7 % (0-4); Hematocrit 41.8 % (37.0-47.0); Hemoglobin 13.7 g/dl (12.0-16.0); Imm Gran Abs Auto 0.05 X10*3/uL (0.00-0.03); Imm Gran Pct Auto 0.5 % (0.0-0.4); Lymphocytes Absolute Auto 2.9 X10*3/uL (1.2-4.9); Lymphocytes Percent Auto 28.1 % (20-40); Mean Corpuscular HGB Conc 32.8 g/dl (31.0-35.0); Mean Corpuscular Hemoglobin 30.8 pg (27.0-33.0); Mean Corpuscular Volume 93.9 fL (80.0-98.0); Mean Platelet Volume 10.4 fL (9.4-12.3); Monocytes Percent Auto 9.9 % (2-11); Neutrophils Absolute Auto 6.1 x10*3/uL (2.0-8.3); Neutrophils Percent Auto 59.1 % (45-73); Platelet Count 279 X10*3/uL (160-400); Red Blood Count 4.45 X10*6/uL (4.20-5.50); Red Cell Distribution Width 14.6 % (11.0-16.0); White Blood Count 10.3 X10*3/uL (4.8-10.8)
[2022-11-28 11:35] LABS: Estimated Average Glucose 126 mg/dL; Hemoglobin A1C 149.8284 umol/L
[2022-11-28 11:56] LABS: Cholesterol 179 mg/dL; HDL Cholesterol 62 mg/dL; LDL Cholesterol Calculated 103 mg/dl; Triglycerides 74 mg/dL
[2022-11-28 11:57] LABS: Alanine Aminotransferase 11 U/L (0-31); Albumin Level 3.8 g/dL (3.5-5.0); Alkaline Phosphatase 111 U/L (39-117); Anion Gap 14 (12-20); Aspartate Amino Transferase 15 U/L (5-31); Bilirubin Total 0.3 mg/dL (0.0-1.0); Blood Urea Nitrogen 18 mg/dL (9-16); C Reactive Protein 0.36 mg/dL (< or = 0.50); Calcium 9.3 mg/dL (8.4-10.2); Carbon Dioxide 23 mmol/L (22-29); Chloride 105 mmol/L (96-108); Estimated Glomerular Filt Rate > 60; Glucose Random 81 mg/dL (60-115); Iron 85 mcg/dL (30-160); Percent Iron Saturation 29 % (15-50); Potassium 4.2 mmol/L (3.3-5.1); Sodium 138 mmol/L (135-145); Total Iron Binding Capacity 295 mcg/dL (228-428); Total Protein 7.2 g/dL (6.5-8.0); Unsaturated Iron Binding 210 ug/dL
[2022-11-28 12:12] LABS: Erythrocyte Sedimentation Rate 13 MM/HR (0-20)
[2022-11-28 12:16] LABS: Ferritin 17 ng/mL (10-250); TSH reflex Free T4 1.53 uIU/mL (0.32-4.0)
[2022-11-28 12:49] LABS: Folate 15.6 ng/mL (> or = 4.0); Vitamin B12 > 2000 pg/mL (200-900)
[2022-11-28 14:12] LABS: Reflex LDLD? No
== END 2022-11-28 09:12 | disposition home or self-care (01) ==
LOC: HO.HHCL 09:11
PROVIDERS: Visit Provider Family Medicine
DX: L30.9 Dermatitis, unspecified (principal); R73.01 Impaired fasting glucose; I11.0 Hypertensive heart disease with heart failure; I50.32 Chronic diastolic (congestive) heart failure; D51.0 Vitamin B12 deficiency anemia due to intrinsic factor deficiency; I48.0 Paroxysmal atrial fibrillation
CPT/HCPCS: 36415; 80053; 80061; 82607; 82728; 82746; 83036; 83540; 84443; 85025; 85652; 86140

== ENCOUNTER 2022-12-04 14:43 | Emergency (ER) | payer OTHER, SELFPAY ==
--- NOTE | 2022-12-04 14:48 | ED.GENADULT ---
HPI - General Adult General Chief complaint: General Medical Stated complaint: pain in legs Time Seen by Provider: 12/04/22 15:48 Source: patient, RN notes reviewed and old records reviewed Mode of arrival: ambulatory History of Present Illness HPI narrative: 77-year-old female with a past medical history of CHF, AFib on Eliquis, asthma, CKD, HTN, PVD, osteoarthritis, presenting to the ED complaining of pruritic discolored rash to bilateral lower extremities and left arm x5 months. States rash is persistent/not going away. Has tried multiple topical remedies as well as followed up with dermatology and obtained biopsy last month (which patient does not know result) without relief. States she was recommended to go to unemployment specialist however has been unable to secure appointment. Denies new exposures, travel, insect bite, fever/chills, SOB Onset (ago): month(s) Related Data Home Medications Medication Instructions Recorded Confirmed albuterol sulfate 90 mcg/actuation 2 puff inhalation Q4-6H PRN 02/07/20 07/28/22 aerosol inhaler Shortness Of Breath Or Wheezing cholecalciferol (vitamin D3) 50 50 mcg PO DAILY 02/07/20 07/28/22 mcg (2,000 unit) tablet (Vitamin D3) cyanocobalamin (vitamin B-12) 1,000 mcg IM QMONTH 02/07/20 07/28/22 1,000 mcg/mL injection solution montelukast 10 mg tablet 10 mg PO BEDTIME 02/07/20 07/28/22 fluticasone propionate 220 0 mcg inhalation BID 01/10/22 07/28/22 mcg/actuation HFA aerosol inhaler (Flovent HFA) omeprazole 40 mg capsule,delayed 1 cap DAILY 02/21/22 07/28/22 release flecainide 100 mg tablet 100 mg PO Q12H 06/27/22 07/28/22 melatonin 1 mg tablet mg PO PRN 06/27/22 07/28/22 Previous Rx's Medication Instructions Recorded plecanatide 3 mg tablet (Trulance) 3 mg PO DAILY #30 tabs 02/05/22 metoprolol succinate 25 mg 25 mg PO DAILY #90 tabs 06/13/22 tablet,extended release 24 hr clotrimazole-betamethasone 1 1 appl topical BID #45 grams 06/27/22 %-0.05 % topical cream apixaban 5 mg tablet (Eliquis) 5 mg PO BID #180 tabs 07/14/22 clotrimazole 1 % topical cream 1 appl topical BID 4 weeks #45 12/04/22 (Antifungal (clotrimazole)) grams hydrocortisone 1 % topical cream 1 appl topical BID PRN rash #28.4 12/04/22 (Anti-Itch (hydrocortisone)) grams Allergies Allergy/AdvReac Type Severity Reaction Status Date / Time bumetanide [BUMETANIDE] Allergy Severe ANAPHYLAXIS Verified 12/04/22 14:49 acetaminophen Allergy Unknown UNKNOWN Verified 12/04/22 14:49 [From Tylenol-Codeine #3] codeine [CODEINE] Allergy Unknown HIVES Verified 12/04/22 14:49 dronedarone [From MULTAQ] Allergy Unknown NAUSEA & Verified 12/04/22 14:49 VOMITING furosemide Allergy Unknown hives Verified 12/04/22 14:49 cyclobenzaprine AdvReac Mild TACHYCARDIA Verified 12/04/22 14:49 [From Flexeril] diphenhydramine AdvReac Mild TACHYCARDIA Verified 12/04/22 14:49 [From Benadryl] Review of Systems Review of Systems: Constitutional: No Fever, No Chills ENT/Mouth: No Ear Pain, No Nasal Congestion, No sore throat, No Rhinorrhea, No Swallowing Difficulty Cardiovascular: No Chest Pain, No SOB Respiratory: No Cough, No Sputum Gastrointestinal: No Nausea, No Vomiting, No Abdominal pain Musculoskeletal: No joint pain, No Myalgias, No Joint Swelling Skin: + Skin Lesions, No rash Neuro: No Weakness, No Numbness, No Paresthesias Yes all other systems are reviewed and are negative Constitutional: Constitutional: Reports as per [facility] Past Medical History Attestation statement: The following information was validated with the patient. Source: old records reviewed Medical History (HFpEF) heart failure with preserved ejection fraction Anxiety Atrial fibrillation Bronchial asthma CKD (chronic kidney disease) H. pylori infection Hypertension Insomnia Irritable bowel syndrome with both constipation and diarrhea On anticoagulant therapy On beta pascale at home Osteoarthritis Paroxysmal atrial fibrillation Peripheral vascular disease Vertigo Surgical History H/O cardiac catheterization H/O cataract removal with insertion of prosthetic lens H/O colonoscopy H/O left mastectomy H/O vaginal hysterectomy History of bladder suspension procedure History of cataract surgery S/P cholecystectomy Family History Family History Sister Breast cancer in female Family/Other Cancer of breast Social History Social History Household Members: Spouse and Children Housing: Apartment Are you a primary care consultant to a significant other at home: No Do you presently have visiting nurse or other home services: Yes Alcohol intake: never Patient Tobacco Use Status: Never used Tobacco Advance Directives: No Advance Directives Information Provided: No service: No Current occupational status: retired and disabled Current occupation: rt hand Physical Exam ED Vital Signs: Vital Signs - 24 hr 12/04/22 14:50 Temperature 98 F Pulse Rate 68 Respiratory Rate 19 Blood Pressure 136/73 Pulse Oximetry 97 Oxygen Delivery Method Room Air BMI result Body Mass Index 33.9 Const General: cooperative, healthy appearing and no acute distress Orientation/consciousness: patient oriented x3 Limitations: no limitations HENMT Head: Yes normal to inspection and Yes atraumatic Ears: hearing grossly normal bilaterally General nose exam: Normal external nose present Face and sinus: Yes normal facial exam Eyes General: appearance normal, both eyes and all related structures EOM: EOMs intact bilaterally Neck Neck: Yes normal visual inspection and Yes no meningeal signs Resp Effort & Inspection: normal respiratory effort and no respiratory distress Cardio Rate: regular rate Skin Other: + erythematous patchy rash noted to bilateral lower extremities with central scaling/dry skin. No warmth. No fluctuance/induration or pustules/vesicles. Not circumferential. No palm/sole or mucous membrane involvement. No sloughing Wounds: no wounds Neuro General: patient oriented x3, tone normal and no meningeal signs Gait exam (Neuro): Normal gait present Extrem General: Yes normal to inspection Course Course Course Narrative: This is a rapid medical exam: Additional HPI, ROS, PE not included below will be deferred to primary provider. Patient is a 77-year-old female with history of nummular eczema and nummular dermatitis, osteoarthritis, osteoporosis, COPD, lumbar radiculopathy, heart failure with preserved EF, and paroxysmal afib presenting to the emergency department with complaint of erythema and pain/itching to bilateral lower legs for several months. She was seen by the clinical psychologist licensed who prescribed a cream but patient states that the cream makes the areas more erythematous and bravo. Patient states that she developed a sting to the back of her leg 4 months ago which then progressed to an erythematous area, states all symptoms have begun since that time. Medical Decision Making Medical Decision Making MDM Narrative: 77-year-old female with a past medical history of CHF, AFib on Eliquis, asthma, CKD, HTN, PVD, osteoarthritis, presenting to the ED complaining of pruritic discolored rash to bilateral lower extremities and left arm x5 months. On exam vital signs stable, NAD, nontoxic appearing, physical exam as noted above. Concern for fungal infection vs atopic dermatitis. No evidence of cellulitis. Low suspicion for SJS/TENS, insect bite, or STI Plan: Topical prescriptions, dermatology follow-up Please refer to course for remaining clinical decision making, interpretation of labs/imaging results, and discussions with consultants and/or family members. Differential Diagnosis Differential Diagnoses: The differential diagnosis associated with the presentation includes As above Independent Historian Clinical information obtained from an independent historian. History obtained from or confirmed by: Spouse External Record Review External record reviewed: Inpatient record, Office record, Outpatient record, Prior outpatient labs, Prior outpatient radiology, Primary care record and Outside ED record Tests considered The following testing was considered but not selected: As above Prescription Management I considered prescription management with: Antibiotic Chronic Conditions Patient?s care impacted by: Other (AFib on Eliquis) Discharge Plan Discharge Clinical Impression: Rash Patient Disposition: Home, Self-Care Instructions: Tinea Corporis (ED), Dermatitis (ED) Additional Instructions: You likely have a fungal infection/dermatitis Clotrimazole as an antifungal cream, hydrocortisone as a topical steroid, please mixed in a 1-1 ratio and apply to rash only Avoid application to her face You need to follow-up with a clinical psychologist licensed If symptoms persist or worsen return to the ED Es probable que tenga mateus infecci?n por hongos/dermatitis Clotrimazol eladia crema antimic?duane, hidrocortisona eladia esteroide t?bud, mezcle en mateus proporci?n de 1 a 1 y apl?quelo solo en la erupci?n Evite la aplicaci?n en dai melissa. Necesitas un seguimiento con un dermat?logo. Si los s?ntomas persisten o empeoran, regrese al servicio de urgencias. Prescriptions: New clotrimazole [Antifungal (clotrimazole)] 1 % cream 1 appl topical BID 28 Days Qty: 45 0RF hydrocortisone [Anti-Itch (HC)] 1 % cream 1 appl topical BID PRN (Reason: rash) Qty: 28.4 0RF No Action metoprolol succinate 25 mg tablet extended release 24 hr 25 mg PO DAILY Qty: 90 3RF Eliquis 5 mg tablet 5 mg PO BID Qty: 180 3RF Hold Instructions: Resume on 06/05/22. resume Eliquis on 06/05/22 cyanocobalamin (vitamin B-12) 1,000 mcg/mL Solution 1,000 mcg IM QMONTH albuterol sulfate 90 mcg/actuation Hfa Aerosol Inhaler 2 puff INHALATION Q4-6H PRN (Reason: Shortness Of Breath Or Wheezing) cholecalciferol (vitamin D3) [Vitamin D3] 50 mcg (2,000 unit) Tablet 50 mcg PO DAILY montelukast 10 mg Tablet 10 mg PO BEDTIME omeprazole 40 mg capsule,delayed release(DR/EC) 1 cap DAILY fluticasone propionate [Flovent HFA] 220 mcg/actuation HFA aerosol inhaler 0 mcg inhalation BID flecainide 100 mg tablet 100 mg PO Q12H melatonin 1 mg tablet PO PRN clotrimazole-betamethasone 1-0.05 % cream 1 appl topical BID Qty: 45 3RF Trulance 3 mg tablet 3 mg PO DAILY Qty: 30 6RF Referrals: Della Vázquez PA [Physician Directional Survey Drafter] - Cruzito Causey MD [Physician] - Luis Dudley MD [Physician] - Candelario Isidro MD [Physician] - Dawn Wynn NP [Nurse Practitioner] - Zeina Warner PA-C [Physician Directional Survey Drafter] - Julissa Bang PA-C [Physician Directional Survey Drafter] - Print Language: Occitan
[2022-12-04 14:50] VITALS: BP 136/73; PULSE 68; RESP 19; TEMP 36.6; O2SAT 97; BMI 33.9
== END 2022-12-04 17:21 | disposition home or self-care (01) ==
PROVIDERS: Emergency Provider Emergency Medicine; PCP Family Medicine
DX: R21 Rash and other nonspecific skin eruption (principal); M79.604 Pain in right leg; M79.605 Pain in left leg; Z79.899 Other long term (current) drug therapy
CPT/HCPCS: 99282; 99283

== ENCOUNTER 2023-01-02 15:58 | Outpatient (AMB) | payer OTHER, SELFPAY ==
[2023-01-02 16:08] VITALS: BP 116/60; PULSE 61; TEMP 36.4; O2SAT 97; BMI 32.5
--- NOTE | 2023-01-02 16:08 | A.OFFVIS_ITS ---
Intake Vital Signs 01/02/23 16:08 Height 5 ft 2 in Weight 177 lb 14.609 oz BMI 32.5 BP 116/60 Blood Pressure Location Rt brachial Position Sitting Pulse 61 Pulse Source Pulse Oximeter Temp 97.5 F Temp Source Skin Pulse Oximetry (%) 97 Intake Visit Reasons: osteoarthritis multiple joints Intake Note: Pt seen today for follow up. States she has been having left leg and hip pain; muscle weakness. Red spots on legs states she has an appt scheduled to see a specialist in [facility]. Manager Social Responsibility Required: Yes Manager Social Responsibility Name: Siva [id number] Accompanied by: Self / Same As Patient Allergies bumetanide [BUMETANIDE] Allergy (Severe, Verified 01/02/23 16:13) ANAPHYLAXIS acetaminophen [From Tylenol-Codeine #3] Allergy (Unknown, Verified 01/02/23 16:13) UNKNOWN codeine [CODEINE] Allergy (Unknown, Verified 01/02/23 16:13) HIVES dronedarone [From MULTAQ] Allergy (Unknown, Verified 01/02/23 16:13) NAUSEA & VOMITING furosemide Allergy (Unknown, Verified 01/02/23 16:13) hives cyclobenzaprine [From Flexeril] Adverse Reaction (Mild, Verified 01/02/23 16:13) TACHYCARDIA diphenhydramine [From Benadryl] Adverse Reaction (Mild, Verified 01/02/23 16:13) TACHYCARDIA Medication List - Last Reconciled 01/02/23 by Cuauhtemoc Lin MD albuterol sulfate 90 mcg/actuation 2 puffs inhalation Q4-6H PRN apixaban (Eliquis) 5 mg PO BID cholecalciferol (vitamin D3) 50 mcg PO DAILY clotrimazole 1% (Antifungal (clotrimazole)) 1 appl topical BID 4 weeks clotrimazole-betamethasone 1-0.05 % 1 appl topical BID cyanocobalamin (vitamin B-12) 1,000 mcg IM QMONTH flecainide 100 mg PO Q12H fluticasone propionate 220 mcg/actuation (Flovent HFA) 0 mcg inhalation BID hydrocortisone 1% (Anti-Itch (hydrocortisone)) 1 appl topical BID PRN melatonin mg PO PRN methylprednisolone (Medrol (Fox)) PO PER PKG DIR metoprolol succinate ER 25 mg PO DAILY montelukast 10 mg PO BEDTIME omeprazole 1 cap DAILY plecanatide (Trulance) 3 mg PO DAILY HPI HPI Comments History of Present Illness Details This is a 77-year-old female with generalized osteoarthritis who presents complaining of right ankle pain. She stated that she has been having right ankle pain radiating towards her right hip and back for a while now. She was referred for physical therapy but she could not tolerate it. She does not remember any trauma to the ankle. Recently patient has been having rashes on her legs. No diagnosis was found. She was referred to see a couturiere. [facility] Medical History (Updated 01/02/23 @ 16:35 by Cuauhtemoc Lin MD) (HFpEF) heart failure with preserved ejection fraction Anxiety Atrial fibrillation Bronchial asthma CKD (chronic kidney disease) H. pylori infection Hypertension Insomnia Irritable bowel syndrome with both constipation and diarrhea On anticoagulant therapy On beta pascale at home Osteoarthritis Paroxysmal atrial fibrillation Peripheral vascular disease Vertigo Surgical History H/O cardiac catheterization H/O cataract removal with insertion of prosthetic lens H/O colonoscopy H/O left mastectomy H/O vaginal hysterectomy History of bladder suspension procedure History of cataract surgery S/P cholecystectomy Family History Sister Breast cancer in female Family/Other Cancer of breast Social History Household Members: Spouse and Children Housing: Apartment Are you a primary intensive care anaesthetist to a significant other at home: No Do you presently have visiting nurse or other home services: Yes Alcohol intake: never Patient Tobacco Use Status: Never used Tobacco service: No Current occupational status: retired and disabled Current occupation: rt hand Review of Systems Musc Reports arthralgias Physical Exam Vital Signs: Last Vital Signs Temp 97.5 F 01/02/23 16:08 Pulse 61 01/02/23 16:08 BP 116/60 01/02/23 16:08 Pulse Ox 97 01/02/23 16:08 BMI result Body Mass Index 32.5 Const General: cooperative and healthy appearing Nutritional Appearance: obese Orientation/consciousness: patient oriented x3 Limitations: ambulation with cane HEENT Head: Yes normocephalic and Yes atraumatic Mouth: moist mucous membranes Resp Effort & Inspection: normal respiratory effort and able to speak in complete sentences Skin Other: Edgemere scaly patches on her legs Neuro General: patient oriented x3 Extrem Other: Hypopigmented areas on her hands consistent with vitiligo, no active synovitis Tenderness just below the right lateral malleolus without warmth Right trochanteric bursa area tenderness Assessment & Plan Assessment & Plan (1) Ankle pain, right: Code(s): M25.571 - Pain in right ankle and joints of right foot Plan: This is a 77-year-old female with generalized osteoarthritis who presents for evaluation of right ankle pain radiating up towards her right hip and back. Will check x-rays of her right ankle as well as her hips and lower back. It is unclear what the pain generator is. Can be radicular pain verses trochanteric bursitis. Will prescribe Medrol Dosepak. Follow-up in 4 weeks Plan I spent 26 minutes reviewing patient's chart, evaluating patient, ordering diagnostic workup, counseling patient and documenting in the chart Orders: Orders XR foot RT min 3V Today M25.571 - Pain in right ankle and joints of right foot XR ankle RT min 3V Today M25.571 - Pain in right ankle and joints of right foot XR hip RT min 2V Today M25.551 - Pain in right hip XR hip LT min 2V Today M25.551 - Pain in right hip XR lumbar spine 4V min Today M25.551 - Pain in right hip Medications: New methylprednisolone (Medrol (Fox)) PO PER PKG DIR 21 ea 0RF Coding Level of Care Code Est Pt Level 4 (17742) Diagnoses Ankle pain, right M25.571
== END 2023-01-02 16:29 | disposition home or self-care (01) ==
PROVIDERS: PCP Family Medicine; Visit Provider Student in an Organized Health Care Education/Training Program
DX: M25.571 Pain in right ankle and joints of right foot (principal)
CPT/HCPCS: 99214

== ENCOUNTER → 2023-01-02 15:58 | Outpatient (BNVA) | payer OTHER, SELFPAY | PROVIDERS: PCP Family Medicine; Visit Provider Student in an Organized Health Care Education/Training Program | DX: M25.571 Pain in right ankle and joints of right foot (principal) | CPT/HCPCS: 99212 ==

== ENCOUNTER 2023-01-16 08:55 | Outpatient (REF) | payer OTHER, SELFPAY ==
--- NOTE | ~2023-01-16 | XR_ITS ---
EXAMINATION: XR HIP, RIGHT CLINICAL INFORMATION: Pain in right hip COMPARISON: None available. TECHNIQUE: Two views of the right hip. FINDINGS: No fracture. Alignment is anatomic. Hip joint space is maintained. Soft tissues are unremarkable. XR/XR hip RT min 2V IMPRESSION: No bony abnormality.
--- NOTE | ~2023-01-16 | XR_ITS ---
EXAMINATION: XR HIP, LEFT CLINICAL INFORMATION: Pain in right hip COMPARISON: None available. TECHNIQUE: Two views of the left hip. FINDINGS: No fracture. Alignment is anatomic. Hip joint space is maintained. Soft tissues are unremarkable. XR/XR hip LT min 2V IMPRESSION: No bony abnormality.
--- NOTE | ~2023-01-16 | XR_ITS ---
EXAMINATION: XR LUMBOSACRAL SPINE WITH OBLIQUES CLINICAL INFORMATION: Pain in right hip COMPARISON: None available. TECHNIQUE: AP, both oblique, and lateral views of the lumbar spine. Lateral view of the lumbosacral junction. The patient's bra hooks T11, T12 and L1 on the AP view. FINDINGS: There is slight curve of the lumbar spine, convex right. There are 5 nonrib-bearing lumbar-type vertebral bodies. There 5 nonrib-bearing lumbar-type vertebral bodies. The height of vertebral bodies is well-maintained. There is moderate to marked disc space narrowing with discogenic sclerosis at L4-L5. There is multilevel degenerative facet joint disease, most notable in the mid and lower lumbar spine. There is grade 1 anterolisthesis of L3 respect to L4. XR/XR lumbar spine 4V min IMPRESSION: 1. Moderate to marked degenerative disc disease at L4-L5. 2. Multilevel degenerative facet joint disease. 3. Grade 1 anterolisthesis of L3 on L4.
--- NOTE | ~2023-01-16 | XR_ITS ---
EXAMINATION: XR FOOT, RIGHT CLINICAL INFORMATION: Pain in right ankle and joints of right foot COMPARISON: Same day right ankle TECHNIQUE: AP, lateral, and oblique views of the right foot. FINDINGS: The bones are diffusely osteopenic. The bones are intact. No fracture. Alignment is anatomic. There is moderate to marked degenerative change of the talonavicular joint and the calcaneocuboid joint. There is slight loss of height of the navicular bone. Small Achilles enthesophyte is noted. No significant soft tissue swelling. XR/XR foot RT min 3V IMPRESSION: Moderate to marked degenerative change of the talonavicular joint and the calcaneocuboid joint.
--- NOTE | ~2023-01-16 | XR_ITS ---
EXAMINATION: XR ANKLE, RIGHT CLINICAL INFORMATION: Pain in right ankle and joints of right foot COMPARISON: Same-day right foot TECHNIQUE: AP and oblique views of the right ankle. FINDINGS: The bones are diffusely osteopenic. No fracture or dislocation. The ankle mortise is well-maintained. No erosions. Soft tissues are normal. XR/XR ankle RT min 3V IMPRESSION: No acute bony abnormality.
== END 2023-01-16 08:56 | disposition home or self-care (01) ==
LOC: HO.XRAY 08:55
PROVIDERS: PCP Family Medicine; Visit Provider Student in an Organized Health Care Education/Training Program
DX: M25.571 Pain in right ankle and joints of right foot (principal); M25.551 Pain in right hip; M25.552 Pain in left hip; M25.572 Pain in left ankle and joints of left foot; M54.50 Low back pain, unspecified
CPT/HCPCS: 72110; 73502; 73610; 73630

== ENCOUNTER 2023-01-27 13:06 | Outpatient (AMB) | payer OTHER, SELFPAY ==
--- NOTE | 2023-01-27 14:02 | A.OFFVIS_ITS ---
Intake Vital Signs 01/27/23 14:04 Height 5 ft 2 in Weight 185 lb 3.013 oz BMI 33.9 BP 120/80 Blood Pressure Location Lt brachial Position Sitting Pulse 59 Intake Visit Reasons: 6 month f/u with an ekg Intake Note: 6 month follow-up with ekg c/o leg pain Train Control Electronic Technician Required: Yes Train Control Electronic Technician Name: Eli Dawson Allergies bumetanide [BUMETANIDE] Allergy (Severe, Verified 01/02/23 16:13) ANAPHYLAXIS acetaminophen [From Tylenol-Codeine #3] Allergy (Unknown, Verified 01/02/23 16:13) UNKNOWN codeine [CODEINE] Allergy (Unknown, Verified 01/02/23 16:13) HIVES dronedarone [From MULTAQ] Allergy (Unknown, Verified 01/02/23 16:13) NAUSEA & VOMITING furosemide Allergy (Unknown, Verified 01/02/23 16:13) hives cyclobenzaprine [From Flexeril] Adverse Reaction (Mild, Verified 01/02/23 16:13) TACHYCARDIA diphenhydramine [From Benadryl] Adverse Reaction (Mild, Verified 01/02/23 16:13) TACHYCARDIA Medication List - Last Reconciled 01/27/23 by Scotty Jorge MD albuterol sulfate 90 mcg/actuation 2 puffs inhalation Q4-6H PRN apixaban (Eliquis) 5 mg PO BID cholecalciferol (vitamin D3) 50 mcg PO DAILY clotrimazole 1% (Antifungal (clotrimazole)) 1 appl topical BID 4 weeks clotrimazole-betamethasone 1-0.05 % 1 appl topical BID cyanocobalamin (vitamin B-12) 1,000 mcg IM QMONTH flecainide 100 mg PO Q12H fluticasone propionate 220 mcg/actuation (Flovent HFA) 0 mcg inhalation BID hydrocortisone 1% (Anti-Itch (hydrocortisone)) 1 appl topical BID PRN melatonin mg PO PRN methylprednisolone (Medrol (Fox)) PO PER PKG DIR metoprolol succinate ER 25 mg PO DAILY montelukast 10 mg PO BEDTIME omeprazole 40 mg PO DAILY plecanatide (Trulance) 3 mg PO DAILY HPI HPI Comments History of Present Illness Details Nadia comes for follow-up. She has been doing very well. History was obtained with help of a certified stage setting painter apprentice. Patient denies any worsening shortness of breath, orthopnea, PND, leg edema. Complains of some tiredness. No prolonged palpitation irregular heartbeat. No bleeding issues or neurologic events. No lightheadedness, syncope. No exertional chest pain. [facility] Medical History On anticoagulant therapy On beta pascale at home Irritable bowel syndrome with both constipation and diarrhea H. pylori infection Insomnia (HFpEF) heart failure with preserved ejection fraction Paroxysmal atrial fibrillation Atrial fibrillation CKD (chronic kidney disease) Vertigo Anxiety Peripheral vascular disease Bronchial asthma Osteoarthritis Hypertension Surgical History H/O cardiac catheterization History of bladder suspension procedure H/O vaginal hysterectomy H/O colonoscopy H/O cataract removal with insertion of prosthetic lens H/O left mastectomy History of cataract surgery S/P cholecystectomy Family History Sister Breast cancer in female Family/Other Cancer of breast Social History Household Members: Spouse and Children Housing: Apartment Are you a primary healthcare customer service to a significant other at home: No Do you presently have visiting nurse or other home services: Yes Alcohol intake: never Patient Tobacco Use Status: Never used Tobacco service: No Current occupational status: retired and disabled Current occupation: rt hand Review of Systems Const Denies chills, Denies fatigue, Denies fever(s), Denies frequent falls, Denies weakness, Denies weight gain and Denies weight loss ENT Denies dizziness Card Denies chest pain, Denies leg edema, Denies lightheadedness, Denies palpitations, Denies dyspnea, Denies dyspnea on exertion, Denies orthopnea and Denies other (loss of consciousness) Resp Denies cough, Denies dyspnea and Denies dyspnea on exertion GI Denies hematochezia and Denies change in stool character Musc Denies abnormal gait, Denies muscle weakness, Denies numbness, Denies radiating pain into limb and Denies tingling Neuro Denies abnormal gait, Denies dizziness, Denies frequent falls, Denies numbness, Denies tingling and Denies weakness Endo Denies fatigue and Denies palpitations Physical Exam Vital Signs: Last Vital Signs Pulse 59 01/27/23 14:04 BP 120/80 01/27/23 14:04 BMI result Body Mass Index 33.9 Const General: cooperative, no acute distress, alert and awake Nutritional Appearance: obese Orientation/consciousness: patient oriented x3 Neck Neck: Yes trachea midline, Yes supple and Yes no JVD Chest Chest palpation & inspection: normal inspection of the chest Resp Effort & Inspection: normal respiratory effort Auscultation: clear to auscultation bilaterally Cardio Jugular venous distension: no JVD Palpation: normal PMI Rate: regular rate Rhythm: regular rhythm Heart sounds: S1 normal heart sound present, S2 normal heart sound present and Other heart sounds present (S4 present) Neuro General: patient oriented x3 and no focal motor deficits Extrem General: Yes no clubbing, cyanosis or edema Psych Appearance: grossly normal Office Procedures EKG Details: EKG shows sinus bradycardia with first-degree AV block with nonspecific in traventricular conduction delay with QRS duration 112 milliseconds, unchanged from before [id number], Complete Assessment & Plan Assessment & Plan (1) Paroxysmal atrial fibrillation: Code(s): I48.0 - Paroxysmal atrial fibrillation Plan: Highly symptomatic paroxysmal atrial fibrillation causing heart failure syndrome. Has done very well with rhythm control approach. Continue pursue rhythm control approach. Tolerating flecainide therapy. Continue the same. Continue concomitant metoprolol therapy. Continue full oral anticoagulation, currently on Eliquis 5 mg b.i.d.. Semi annual renal function test should be pursued. Continue participate in physical activity as tolerated. Continue management of COPD as per Pulmonary (2) (HFpEF) heart failure with preserved ejection fraction: Code(s): I50.30 - Unspecified diastolic (congestive) heart failure Plan: Heart failure with preserved ejection fraction resolve since rhythm control approach. Currently not on any diuretic regimen. Doing very well with rhythm control approach will continue pursue rhythm control approach will continue aggressive blood pressure control which is currently well optimized target goal blood pressure less than 130/84. Daily weight monitoring avoidance of salt loading was discussed. Signs and symptoms of heart failure were discussed. Continue current medical regimen participate in regular physical activity. Request echocardiogram to evaluate LV systolic and diastolic function Follow up in the clinic in 6 months time, sooner p.r.n.. Thank you for allowing me to partake in her care Orders: Orders Basic Metabolic Panel Today I48.0 - Paroxysmal atrial fibrillation CA echo transthoracic complete Today I50.30 - Unspecified diastolic (congestive) heart failure Complete Blood Count no Diff Today I48.0 - Paroxysmal atrial fibrillation Coding Level of Care Code Est Pt Level 4 (18353) Diagnoses Paroxysmal atrial fibrillation I48.0 (HFpEF) heart failure with preserved ejection fraction I50.30 CPT Codes EKG - CPT: 56939-[id number], Complete ([id number])
[2023-01-27 14:04] VITALS: BP 120/80; PULSE 59; BMI 33.9
== END 2023-01-27 14:25 | disposition home or self-care (01) ==
PROVIDERS: PCP Family Medicine; Visit Provider Internal Medicine Cardiovascular Disease
DX: I48.0 Paroxysmal atrial fibrillation (principal); I50.30 Unspecified diastolic (congestive) heart failure
CPT/HCPCS: 93010; 99214

== ENCOUNTER → 2023-01-27 13:06 | Outpatient (BNVA) | payer OTHER, SELFPAY | PROVIDERS: PCP Family Medicine; Visit Provider Internal Medicine Cardiovascular Disease | DX: I48.0 Paroxysmal atrial fibrillation (principal); I50.30 Unspecified diastolic (congestive) heart failure | CPT/HCPCS: 93005; 99212 ==

== ENCOUNTER 2023-02-06 09:07 | Outpatient (AMB) | payer OTHER, SELFPAY ==
[2023-02-06 09:07] VITALS: BP 118/66; PULSE 58; O2SAT 96; BMI 33.9
--- NOTE | 2023-02-06 09:07 | MHC.OFFVIS ---
Intake Vital Signs 02/06/23 09:07 Height 5 ft 2 in Weight 185 lb 6.54 oz BMI 33.9 BP 118/66 Blood Pressure Location Rt brachial Position Sitting Pulse 58 Pulse Source Pulse Oximeter Pulse Oximetry (%) 96 Intake Visit Reasons: ankle pain Intake Note: Pt seen today for follow up on ankle pain and x-ray results. Completed Medrol Dosepak Saw derm [facility] did biopsy and was referred to [facility] States she cant stand the itching; states she feels as if something bit her and since then she has developed the rash approx 4 months ago. Itching and spots are spreading. Allergies bumetanide [BUMETANIDE] Allergy (Severe, Verified 02/06/23 09:14) ANAPHYLAXIS acetaminophen [From Tylenol-Codeine #3] Allergy (Unknown, Verified 02/06/23 09:14) UNKNOWN codeine [CODEINE] Allergy (Unknown, Verified 02/06/23 09:14) HIVES dronedarone [From MULTAQ] Allergy (Unknown, Verified 02/06/23 09:14) NAUSEA & VOMITING furosemide Allergy (Unknown, Verified 02/06/23 09:14) hives cyclobenzaprine [From Flexeril] Adverse Reaction (Mild, Verified 02/06/23 09:14) TACHYCARDIA diphenhydramine [From Benadryl] Adverse Reaction (Mild, Verified 02/06/23 09:14) TACHYCARDIA Medication List - Last Reconciled 02/06/23 by Cuauhtemoc Lin MD albuterol sulfate 90 mcg/actuation 2 puffs inhalation Q4-6H PRN apixaban (Eliquis) 5 mg PO BID cholecalciferol (vitamin D3) 50 mcg PO DAILY clotrimazole 1% (Antifungal (clotrimazole)) 1 appl topical BID 4 weeks clotrimazole-betamethasone 1-0.05 % 1 appl topical BID cyanocobalamin (vitamin B-12) 1,000 mcg IM QMONTH flecainide 100 mg PO Q12H fluticasone propionate 220 mcg/actuation (Flovent HFA) 0 mcg inhalation BID hydrocortisone 1% (Anti-Itch (hydrocortisone)) 1 appl topical BID PRN melatonin mg PO PRN metoprolol succinate ER 25 mg PO DAILY montelukast 10 mg PO BEDTIME omeprazole 40 mg PO DAILY plecanatide (Trulance) 3 mg PO DAILY HPI HPI Comments History of Present Illness Details Patient returns for follow-up. She completed the Medrol taper. Does not know whether it helped her arthritis. She continues to have ankle pain. Her rashes on her legs are the same and are worsening, she states that she had a skin biopsy at [facility] with inconclusive results. She was then referred to a appraiser boats and marine in [facility], she saw all the appraiser boats and marine but does not know the diagnosis. She was not started on any specific treatment yet. Initial history: This is a 77-year-old female with generalized osteoarthritis who presents complaining of right ankle pain. She stated that she has been having right ankle pain radiating towards her right hip and back for a while now. She was referred for physical therapy but she could not tolerate it. She does not remember any trauma to the ankle. Recently patient has been having rashes on her legs. No diagnosis was found. She was referred to see a appraiser boats and marine. [facility] Medical History On anticoagulant therapy On beta pascale at home Irritable bowel syndrome with both constipation and diarrhea H. pylori infection Insomnia (HFpEF) heart failure with preserved ejection fraction Paroxysmal atrial fibrillation Atrial fibrillation CKD (chronic kidney disease) Vertigo Anxiety Peripheral vascular disease Bronchial asthma Osteoarthritis Hypertension Surgical History H/O cardiac catheterization History of bladder suspension procedure H/O vaginal hysterectomy H/O colonoscopy H/O cataract removal with insertion of prosthetic lens H/O left mastectomy History of cataract surgery S/P cholecystectomy Family History Sister Breast cancer in female Family/Other Cancer of breast Social History Household Members: Spouse and Children Housing: Apartment Are you a primary care professional to a significant other at home: No Do you presently have visiting nurse or other home services: Yes Alcohol intake: never Patient Tobacco Use Status: Never used Tobacco service: No Current occupational status: retired and disabled Current occupation: rt hand Review of Systems Musc Reports arthralgias Skin/Breast Reports pruritus and Reports rash Physical Exam Vital Signs: Last Vital Signs Pulse 58 02/06/23 09:07 BP 118/66 02/06/23 09:07 Pulse Ox 96 02/06/23 09:07 BMI result Body Mass Index 33.9 Const General: cooperative and healthy appearing Nutritional Appearance: obese Orientation/consciousness: patient oriented x3 Limitations: ambulation with cane HEENT Head: Yes normocephalic and Yes atraumatic Resp Effort & Inspection: normal respiratory effort and able to speak in complete sentences Skin Other: [place] scaly patches on her legs Neuro General: patient oriented x3 Extrem Other: Hypopigmented areas on her hands consistent with vitiligo, no active synovitis Tenderness just below the right lateral malleolus without warmth Right trochanteric bursa area tenderness Assessment & Plan Assessment & Plan (1) Ankle pain, right: Code(s): M25.571 - Pain in right ankle and joints of right foot Qualifiers: Chronicity: chronic Qualified Code(s): M25.571 - Pain in right ankle and joints of right foot; G89.29 - Other chronic pain Plan: This is a 77-year-old female with generalized osteoarthritis who presents for evaluation of right ankle pain radiating up towards her right hip. Right foot x-ray show moderate to severe arthritis is in the talonavicular and calcaneocuboid joints. Advised patient to wear comfortable shoes. Try Salonpas patches, cannot take NSAIDs due to being on Eliquis. Can take Tylenol. Referred to podiatry. Advised patient to take a disc of her x-rays when she goes to see Podiatry (2) Rash: Code(s): R21 - Rash and other nonspecific skin eruption Plan: Follow-up with dermatology Plan I spent 26 minutes reviewing patient's chart, evaluating patient, placing orders, counseling patient and documenting in the chart Orders: Referrals Podiatry Referral M19.079 - Primary osteoarthritis, unspecified ankle and foot Coding Level of Care Code Est Pt Level 4 (67525) Diagnoses Chronic pain of right ankle M25.571; G89.29 Chronicity: chronic Rash R21
== END 2023-02-06 09:30 | disposition home or self-care (01) ==
PROVIDERS: PCP Family Medicine; Visit Provider Student in an Organized Health Care Education/Training Program
DX: M25.571 Pain in right ankle and joints of right foot (principal); G89.29 Other chronic pain; R21 Rash and other nonspecific skin eruption
CPT/HCPCS: 99214

== ENCOUNTER → 2023-02-06 09:07 | Outpatient (BNVA) | payer OTHER, SELFPAY | PROVIDERS: PCP Family Medicine; Visit Provider Student in an Organized Health Care Education/Training Program | DX: M25.571 Pain in right ankle and joints of right foot (principal); G89.29 Other chronic pain; R21 Rash and other nonspecific skin eruption | CPT/HCPCS: 99212 ==

== ENCOUNTER 2023-04-13 09:04 | Outpatient (REF) | payer OTHER, SELFPAY ==
[2023-04-13 12:01] LABS: Estimated Average Glucose 140 mg/dL; Hemoglobin A1c % 6.5 % (<6.0)
[2023-04-13 12:14] LABS: Cholesterol 184 mg/dL (<200); HDL Cholesterol 67 mg/dL (>40); LDL Cholesterol Calculated 101 mg/dL (<100); Triglycerides 82 mg/dL (<150)
[2023-04-13 12:18] LABS: Alanine Aminotransferase 11 U/L (0-31); Alkaline Phosphatase 99 U/L (39-117); Anion Gap 16 (12-20); Aspartate Amino Transferase 14 U/L (5-31); Bilirubin Total 0.3 mg/dL (0.0-1.0); Blood Urea Nitrogen 17 mg/dL (9-16); Calcium 9.6 mg/dL (8.4-10.2); Carbon Dioxide 26 mmol/L (22-29); Chloride 106 mmol/L (96-108); Estimated Glomerular Filt Rate > 60; Glucose Random 104 mg/dL (60-115); Potassium 4.8 mmol/L (3.3-5.1); Sodium 143 mmol/L (135-145); Total Protein 7.3 g/dL (6.5-8.0)
[2023-04-13 12:20] LABS: TSH reflex Free T4 2.05 uIU/mL (0.32-4.0)
[2023-04-13 12:34] LABS: Folate 14.8 ng/mL (> or = 4.0); Vitamin B12 1116 pg/mL (200-900)
[2023-04-13 14:26] LABS: Reflex LDLD? No
== END 2023-04-13 09:05 | disposition home or self-care (01) ==
LOC: HO.HHCL 09:04
PROVIDERS: Visit Provider Family Medicine
DX: R73.01 Impaired fasting glucose (principal); I10 Essential (primary) hypertension; E53.8 Deficiency of other specified B group vitamins
CPT/HCPCS: 36415; 80053; 80061; 82607; 82746; 83036; 84443